=== PATIENT | male | born 1970 | race Caucasian/White ===

== ENCOUNTER 2016-09-28 13:59 | Inpatient (IN) | payer OTHER ==
[~2016-09-28] VITALS: Ht 182.9 cm; Wt 77.1 kg
[2016-09-28 15:45] LABS: HEMOGLOBIN 8.4 gm/dl (14.0-17.5); RED BLOOD COUNT 2.65 M/UL (4.20-5.50); WHITE BLOOD COUNT 29.5 K/UL (4.5-11.0)
[2016-09-29 04:03] LABS: HEMOGLOBIN 8.5 gm/dl (14.0-17.5); RED BLOOD COUNT 2.7 M/UL (4.20-5.50)
[2016-09-29 04:05] LABS: WHITE BLOOD COUNT 30.3 K/UL (4.5-11.0)
[2016-09-29] MEDS ORDERED: LYRICA150 MG PO (08:50)
[2016-09-29] MEDS ORDERED: ELAVIL 25 MG TA25 MG PO (08:51)
[2016-09-29] MEDS ORDERED: OXYCODON-ACETA1 EAC1 PO (08:52)
[2016-09-30 07:20] LABS: RED BLOOD COUNT 2.57 M/UL (4.20-5.50); WHITE BLOOD COUNT 27.6 K/UL (4.5-11.0)
[2016-10-01 03:55] LABS: HEMOGLOBIN 7.8 gm/dl (14.0-17.5); RED BLOOD COUNT 2.44 M/UL (4.20-5.50)
[2016-10-01 04:00] LABS: WHITE BLOOD COUNT 18.9 K/UL (4.5-11.0)
[2016-10-02 02:33] LABS: HEMOGLOBIN 8.4 gm/dl (14.0-17.5); RED BLOOD COUNT 2.7 M/UL (4.20-5.50); WHITE BLOOD COUNT 18.2 K/UL (4.5-11.0)
[2016-10-03 04:09] LABS: HEMOGLOBIN 7.6 gm/dl (14.0-17.5); RED BLOOD COUNT 2.45 M/UL (4.20-5.50); WHITE BLOOD COUNT 18.8 K/UL (4.5-11.0)
--- NOTE | 2016-10-04 05:21 | NUR ---
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 EDUCATED PATIENT ABOUT IMPORTANCE OF WEARING THESE MONITORS, PATIENT VERBALIZED UNDERSTANDING BUT STILL REFUSES TO WEAR THE MONITORS. DR PEDRO MADE AWARE.
--- NOTE | 2016-10-04 05:45 | NUR ---
10-03-16 PATIENT MADE AWARE OF NEED FOR URINE SAMPLE PER MD ORDER. PATIENT BECAME UPSET, THEN STATES "SO I HAVE TO RING OUT AND TELL YOU WHEN I NEED TO PEE?"
--- NOTE | 2016-10-04 05:48 | NUR ---
PATIENT IS AWARE OF NEED FOR URINE SAMPLE, HOWEVER HE HAS NOT USED URINAL OR RANG CALL LIGHT FOR ASSISTANCE WHEN VOIDING. PT VERBALIZED THAT HE HAS VOIDED THREE TIMES IN THE COMMODE THROUGHOUT THE SHIFT.
[2016-10-04 06:36] LABS: RED BLOOD COUNT 2.57 M/UL (4.20-5.50); WHITE BLOOD COUNT 19.9 K/UL (4.5-11.0)
[2016-10-04 11:22] LABS: HEMOGLOBIN 7.6 gm/dl (14.0-17.5); RED BLOOD COUNT 2.44 M/UL (4.20-5.50)
[2016-10-05 06:31] LABS: HEMOGLOBIN 8.1 gm/dl (14.0-17.5); RED BLOOD COUNT 2.64 M/UL (4.20-5.50)
--- NOTE | 2016-10-05 08:15 | NUR ---
PATIENT SEEN AMBULATING IN HALLWAY BY ROSARIO ANN AT APPROX 0315. PATIENT NOT BACK TO ROOM AT 0400. SEARCH FOR PATIENT ON HOSPITAL PROPERTY DONE BY SECURITY, PATIENT NOT FOUND. 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 AT APPROXIMATELY 0540 PATIENT WAS FOUND ASLEEP ON COMMODE IN BATHROOM OF ROOM 5112. NO DISTRESS OBSERVED. PATIENT TAKEN BACK TO 5115 AND ENCOURAGED TO REMAIN IN ROOM.
[2016-10-06 04:37] LABS: HEMOGLOBIN 8.3 gm/dl (14.0-17.5); RED BLOOD COUNT 2.66 M/UL (4.20-5.50)
[2016-10-06 04:44] LABS: WHITE BLOOD COUNT 11.8 K/UL (4.5-11.0)
[2016-10-07 06:45] LABS: HEMOGLOBIN 7.3 gm/dl (14.0-17.5); RED BLOOD COUNT 2.38 M/UL (4.20-5.50); WHITE BLOOD COUNT 11.8 K/UL (4.5-11.0)
[2016-10-08 07:26] LABS: RED BLOOD COUNT 2.22 M/UL (4.20-5.50); WHITE BLOOD COUNT 13.3 K/UL (4.5-11.0)
[2016-10-08 07:29] LABS: HEMOGLOBIN 6.7 gm/dl (14.0-17.5)
[2016-10-08 21:12] LABS: HEMOGLOBIN 8.5 gm/dl (14.0-17.5)
[2016-10-09 06:41] LABS: HEMOGLOBIN 8.2 gm/dl (14.0-17.5); WHITE BLOOD COUNT 15.4 K/UL (4.5-11.0)
[2016-10-09 06:43] LABS: RED BLOOD COUNT 2.66 M/UL (4.20-5.50)
[2016-10-09] MEDS ORDERED: METOPROLOL TART25 MG PO (11:37)
[2016-10-09] MEDS ORDERED: ATIVAN0.5 MG PO (11:38)
[2016-10-09] MEDS ORDERED: FERROUS SULFAT325 M2 PO (11:39)
[2016-10-09] MEDS ORDERED: PREDNISONE10 MG PO (11:40)
[2016-10-09] MEDS ORDERED: AUGMENTIN 875-1 EACH PO (11:41)
[2016-10-09] MEDS ORDERED: PROAIR HFA8.5 GM INH (11:43)
[2016-10-09] MEDS ORDERED: COLACE 100MG C100 MG PO (11:45)
[2016-10-09] MEDS ORDERED: IPRAT-ALBUT 0.5-3 ML INH (11:45)
== END 2016-10-09 12:49 | disposition home or self-care (01) | DRG 871 ==
LOC: ER1 13:59 → ZEROF 18:00 → PROG CARE 18:00 → M/S 18:00 → CCU 09-29 09:30 → PROG CARE 09-29 19:49 → M/S 10-02 14:17
PROVIDERS: Internal Medicine; Internal Medicine Hematology & Oncology; Physician Assistant; ADMIT Internal Medicine
PROC: 0TB03ZX Excision of Right Kidney, Percutaneous Approach, Diagnostic (ICD-10-PCS; principal; 2016-10-07)
PROC: 30233N1 Transfusion of Nonautologous Red Blood Cells into Peripheral Vein, Percutaneous Approach (ICD-10-PCS; 2016-10-08)
DX: A41.9 Sepsis, unspecified organism (principal); J18.9 Pneumonia, unspecified organism; N01.9 Rapidly progressive nephritic syndrome with unspecified morphologic changes; N17.9 Acute kidney failure, unspecified; J44.1 Chronic obstructive pulmonary disease with (acute) exacerbation; J44.0 Chronic obstructive pulmonary disease with (acute) lower respiratory infection; N99.840 Postprocedural hematoma of a genitourinary system organ or structure following a genitourinary system procedure; R65.20 Severe sepsis without septic shock; D50.9 Iron deficiency anemia, unspecified; N18.3 Chronic kidney disease, stage 3 (moderate); Y84.8 Other medical procedures as the cause of abnormal reaction of the patient, or of later complication, without mention of misadventure at the time of the procedure; Y73.0 Diagnostic and monitoring gastroenterology and urology devices associated with adverse incidents; Y92.239 Unspecified place in hospital as the place of occurrence of the external cause; J20.9 Acute bronchitis, unspecified; E87.5 Hyperkalemia; D47.3 Essential (hemorrhagic) thrombocythemia; R00.0 Tachycardia, unspecified; D53.9 Nutritional anemia, unspecified; G56.91 Unspecified mononeuropathy of right upper limb; M79.661 Pain in right lower leg; F17.200 Nicotine dependence, unspecified, uncomplicated; R63.0 Anorexia; Z68.23 Body mass index [BMI] 23.0-23.9, adult; Z79.891 Long term (current) use of opiate analgesic; Z79.899 Other long term (current) drug therapy; Z88.6 Allergy status to analgesic agent; Z88.8 Allergy status to other drugs, medicaments and biological substances; Z89.201 Acquired absence of right upper limb, unspecified level; Z82.49 Family history of ischemic heart disease and other diseases of the circulatory system
CPT/HCPCS: 36415; 36430; 71010; 71020; 71250; 76705; 77012; 80048; 80053; 80074; 80202; 81001; 81270; 82157; 82272; 82436; 82550; 82552; 82553; 82570; 82607; 82728; 82746; 83010; 83516; 83540; 83550; 83605; 83615; 83735; 83874; 83883; 83921; 84133; 84156; 84300; 84484; 84550; 85014; 85018; 85025; 85027; 85610; 85730; 86039; 86140; 86160; 86225; 86334; 86850; 86900; 86901; 86920; 87040; 87070; 87205; 88305; 88313; 88346; 88348; 89050; 93005; 93971; 94640; 94664; 96361; 96365; 96367; 96375; 99285; J0456; J0696; J2543; J2550; J2597; J2930; J3370; J7030; J7040; J7050; J7070; P9016

== ENCOUNTER → 2016-11-03 | Outpatient (CLI) | payer OTHER ==
[~2016-11-03] VITALS: Ht 182.9 cm; Wt 74.4 kg
[~2016-11-03] MED LIST: ATIVAN0.5 MG PO; AUGMENTIN 875-1 EACH PO; COLACE 100MG C100 MG PO; ELAVIL 25 MG TA25 MG PO; FERROUS SULFAT325 M2 PO; IPRAT-ALBUT 0.5-3 ML INH; LYRICA150 MG PO; METOPROLOL TART25 MG PO; OXYCODON-ACETA1 EAC1 PO; PREDNISONE10 MG PO; PROAIR HFA8.5 GM INH
[2016-11-03 17:15] LABS: HEMOGLOBIN 9.5 gm/dl (14.0-17.5); RED BLOOD COUNT 3.09 M/UL (4.20-5.50); WHITE BLOOD COUNT 9.1 K/UL (4.5-11.0)
== END ==
LOC: OPSV 11-02 16:00
PROVIDERS: Internal Medicine Nephrology
DX: N05.7 Unspecified nephritic syndrome with diffuse crescentic glomerulonephritis (principal); N18.3 Chronic kidney disease, stage 3 (moderate)
CPT/HCPCS: 36415; 80053; 81001; 82043; 82570; 82728; 83540; 83550; 84100; 84156; 85027; 96365; J2930; J7070

== ENCOUNTER → 2016-11-04 | Outpatient (CLI) | payer OTHER ==
[~2016-11-04] VITALS: Ht 182.9 cm; Wt 74.4 kg
== END ==
LOC: OPSV 16:00
DX: N05.7 Unspecified nephritic syndrome with diffuse crescentic glomerulonephritis (principal)
CPT/HCPCS: 96365; J2930; J7070

== ENCOUNTER → 2016-11-05 | Outpatient (CLI) | payer OTHER ==
[~2016-11-05] VITALS: Ht 182.9 cm; Wt 74.4 kg
== END ==
LOC: OPSV 16:00
DX: N05.7 Unspecified nephritic syndrome with diffuse crescentic glomerulonephritis (principal); N18.3 Chronic kidney disease, stage 3 (moderate)
CPT/HCPCS: 96365; J2930; J7070